=== PATIENT | male | born 1940 | race Caucasian/White ===

== ENCOUNTER 2017-03-02 16:04 | Outpatient (CLI) | payer MEDICARE, OTHER ==
[2017-03-02 21:14] LABS: Bilirubin Negative (Negative); Blood, Urine Negative (Negative); Clarity Clear (Clear); Glucose, Urine (Dipstick) Negative (Negative); Leukocyte Negative (Negative); Nitrite Negative (Negative); Protein, Urine (Dipstick) Trace mg/dL (Neg-Trace); pH, Urine 6.5 (5.0-9.0)
[2017-03-02 21:42] LABS: Specific Gravity, Urine 1.032 (1.002-1.036)
[2017-03-02 22:07] LABS: RBC/HPF 0-3 HPF (0-3)
[2017-03-02 22:08] LABS: Bacteria/HPF Rare-Few HPF (None Seen); WBC/HPF 0-3 HPF (0-3)
== END 2017-03-02 16:05 | disposition home or self-care (01) ==
LOC: NAV LABSP 16:04
PROVIDERS: ATTEND Family Medicine
DX: N39.0 Urinary tract infection, site not specified (principal)
CPT/HCPCS: 81001; 87086